=== PATIENT | female | born 1995 | race Caucasian/White ===

== ENCOUNTER 2023-07-11 18:15 | Outpatient (CLI) | payer OTHER ==
--- NOTE | 2023-07-11 18:25 | NUR ---
1825: PT AMBULATED TO LABOR ROOM 5 WITH . PT USED BATHROOM AND CHANGED INTO CLEAN GOWN. 183: PT PLACED ON EFM. PT HERE WITH C/O SUSPECTED SROM. THE PATIENT STATES THAT SHE BELIEVES SHE STARTED LEAKING FLUID ON 07/10/23 AROUND NOON WHILE THEY WERE OUT SHOPPING. THIS RN ASKED THE PATIENT IF SHE IS SOAKING PADS WITH FLUIDS, AND THE PATIENT STATES SHE HAS NOT BEEN WEARING PADS, AND SHE IS JUST CHANGING HER UNDERWARE WHEN SHE BECOMES UNCOMFORTABLE WITH THE WATER. SVE CHECK SHE IS 1/75/-3, AMNIOSWAB IS NEGATIVE. THE PATIENT WAS PREVIOUSLY 1/60/-3 IN THE OFFICE. DISCUSSED PLAN OF CARE WITH PATIENT. 183: DISCUSSED PT WITH WHO WAS SITTING AT THE NURSE STATION. DUE TO NEGATIVE SWAB, PLAN OF CARE IS TO MONITOR BABY FOR 20 MINUTES WITH CATEGORY 1 STRIP AND THEN DISCHARGE. PT VERBALIZED UNDERSTANDING OF THESE PLANS. NO OTHER CONCERNS WITH THIS PATIENT AT THE PRESENT TIME.
[2023-07-11] MEDS ORDERED: PEPCID AC 10MG10 MG PO (18:52)
[2023-07-11] MEDS ORDERED: FLONASEALLERGY NS (18:53)
[2023-07-11] MEDS ORDERED: PNV-SELECT1 TAB PO (18:54)
[2023-07-11] MEDS ORDERED: ZYRTEC ALLERGY10 MG PO (18:54)
[2023-07-11 19:00] VITALS: BP 129/76; PULSE 83
[2023-07-11 19:40] VITALS: PULSE 74
[2023-07-17] MEDS ORDERED: PERCOCET 325 MG1 TA2 PO ×2 (09:46→12:42)
[2023-07-17] MEDS ORDERED: MOTRIN 800800 MG/TAB PO ×2 (09:46→12:42)
[2023-07-17] MEDS ORDERED: COLACE 100100 MG/CAP PO (09:47)
== END 2023-07-11 19:45 | disposition home or self-care (01) ==
LOC: LDRO 18:15
DX: Z34.90 Encounter for supervision of normal pregnancy, unspecified, unspecified trimester (principal)

== ENCOUNTER → 2023-08-12 | Outpatient (CLI) | payer OTHER ==
[~2023-08-12] MED LIST: COLACE 100100 MG/CAP PO; FLONASEALLERGY NS; MOTRIN 800800 MG/TAB PO; PEPCID AC 10MG10 MG PO; PERCOCET 325 MG1 TA2 PO; PNV-SELECT1 TAB PO; ZYRTEC ALLERGY10 MG PO
--- NOTE | 2023-08-12 15:31 | NUR ---
Pt, Carlos Bates, presents for outpatient consult with 4 week old baby boy, Pernell Bates. Pt states and Pernell's weight have been a concern from the beginning and she is requesting an evaluation. Pernell was born on [birth year] by vacuum assist and weighed 9# 9.1oz (4340 gms). His lowest know weight was 8# 4oz on 07/19/23. With supplement he was up to 8# 9oz on 07/22/23. Pernell [facility] at [facility] on 07/[facility]23 and weighed 8# 15oz. Pt had been almost exclusive pumping and bottle feeding. Today Pernell weighs 9# 9.3oz (4346 gms). Pt states she has almost exclusively breastfed for the last 24 hours. She states Pernell will nurse upto an hour if allowed, several of her documented feedings are ~45 minutes. He is eating 8-9 times per day. She states he has several voids but 0-3 stools per day. Pt breastfeeds Pernell in her usual fashion. LC notes that Pernell has his lips essentially at the base of the nipple. Pt advised on compression of the areola to help get the nipple deeper into Andre mouth. LC notes during the feeding Pernell has a loose grasp on the nipple, he releases and relatches a handful of times and his swallow frequency is about 25% of what is expected for a baby his size and age. After nursing bilaterally for a total of 35 minutes Pernell had a post feed gain of 1.6oz (46 gms). For his age and size Pernell should be getting 3.5-4oz per feeding. He is provided 2oz formula after as he is clearly still hungry. LC does gloved suck evaluation and notes a high anterior palate, a weak grasp with the tongue around the finger, weak compression of the finger against the roof of the mouth and possible posterior tongue tie. Impression: Weak grasp of the breast with the tongue and high anterior palate causing decreased ability to compress the nipple against the roof of the mouth for adequate milk transfer. Possible posterior tongue tie contributing to poor compression. POC: LC advises breastfeed as desired, limit time at each breast to 10 minutes. Follow with ~2oz EBM or formula, or more if indicated by behavior. Follow with 15min bilateral pumping. F/U: Pernell has an appointment with Dr. Napier on 08/16/23. Pt plans to discuss this information at that time. Follow up with this LC as desired. Questions invited and answered.
== END ==
LOC: LAC 13:57
DX: Z39.1 Encounter for care and examination of lactating mother (principal); Z71.89 Other specified counseling